=== PATIENT | male | born 2005 | race Caucasian/White ===

== ENCOUNTER → 2025-04-15 | Outpatient (CLI) | payer SELFPAY ==
--- NOTE | 2025-04-15 10:40 | RAD_ITS ---
PROCEDURE: ABDOMEN SINGLE VIEW 04/15/2025 REASON FOR EXAM: R/O CONSTIPATION TECHNIQUE: Procedure Code: RADABD Modality: DX Procedure: ABDOMEN SINGLE VIEW COMPARISON: None. FINDINGS: LUNG BASES: Lung bases clear where seen. BOWEL: The bowel gas pattern is unremarkable. No bowel obstruction. Moderate stool in the ascending colon. PERITONEUM/SOFT TISSUES: No appreciable free air. No abnormal calcifications. BONES: No acute osseous abnormality. RAD/Abdomen Single View IMPRESSION: NO ACUTE FINDINGS Reading Location: [id number]
== END | disposition home or self-care (01) ==
LOC: RAD 10:17
PROVIDERS: Referring Provider Nurse Practitioner Family; Visit Provider Nurse Practitioner Family
DX: R10.9 Unspecified abdominal pain (principal)
CPT/HCPCS: 74018